=== PATIENT | female | born 2000 | race Caucasian/White ===

== ENCOUNTER 2024-02-06 00:10 | Inpatient (IN) | payer MEDICAID ==
[~2024-02-06] VITALS: Ht 175.3 cm; Wt 119.7 kg
--- NOTE | ~2024-02-06 | OR ---
[address] [address] [place] DATE OF OPERATION: 02/06/2024 SURGEON: Cait Desouza MD PREOPERATIVE DIAGNOSES: 1. Full-term intrauterine . 2. Previous C section x1. 3. Active labor. POSTOPERATIVE DIAGNOSES: 1. Full-term intrauterine . 2. Previous C section x1. 3. Active labor. PROCEDURE PERFORMED: Repeat low-transverse section via Pfannenstiel skin incision. ANESTHESIA: Spinal. ESTIMATED BLOOD LOSS: 400 mL. IV FLUIDS: Please see Anesthesia record. URINE OUTPUT: Please see Anesthesia record. SPECIMEN: None. COMPLICATIONS: None. FINDINGS: Viable female in vertex position. Apgars 7 and 9. Weight pending. Normal appearing uterus, ovaries and tubes. INDICATION AND CONSENT: PATIENT NAME: MONCHO LR OPERATIVE REPORT DATE OF : [birth year] REPORT #: [id number] PHYSICIAN: CAIT DESOUZA MD PCP: NO PRIMARY CARE PHYSICIAN REPORT IS CONFIDENTIAL AND NOT TO BE RELEASED WITHOUT AUTHORIZATION [address] [address] [place] The patient is a 23-year-old G3, P2-0-0-2 at 40 weeks and 4 days by EDC, who presented to Labor and Delivery complaining of contractions and labor. She was determined to be in active labor when she was dilated to 7 cm. She had a previous C section x1. Reviewed that this is and recommendations for repeat section secondary to limited resources. The patient agreed with this plan. All risks, benefits, alternatives and indications were reviewed with the patient in detail including the risk of bleeding, infection, damage to surrounding structures, and risks of requiring future restorative operation and a rare risk of injury or . Consent was signed and the patient agreed with plan. The patient was also consented for the possibility of blood transfusion with those inherent risks. PROCEDURE IN DETAIL: The patient was taken to the operating room with IV fluids running and pneumatic compression stockings applied to the lower extremities. The patient was prepped and draped in a normal sterile fashion. 2 g of Ancef was given for infection prophylaxis. Spinal anesthesia was obtained without difficulty. A Pfannenstiel skin incision was made was made with a scalpel and carried down to the fascia. The fascia was incised and extended laterally using Pearl scissors. The inferior aspect of the fascia was elevated with Galina clamps and the underlying rectus muscles pyramidalis was dissected out in similar fashion superior aspect and the fascia was also elevated with Galina clamps and the rectus muscles were dissected. Hemostasis was achieved with a Bovie. The rectus muscle was in the midline down to a level of the pubic symphysis. Preperitoneal fatty tissue was bluntly dissected to expose the peritoneum. Peritoneum was found to be free of adherent bowel and entered sharply. Peritoneal incision was extended superiorly and inferiorly with the bladder reflection with good visualization of the bladder. The Moises retractor was inserted and vesicouterine peritoneum was identified. Intra-abdominal survey revealed scant clear peritoneal fluid and a thinned out lower uterine segment. The vesicouterine peritoneum was examined. A bladder flap was developed. The bladder was kept out of the operative field using Moises retractor. The lower uterine segment was incised with a Scalpel and entered bluntly. The amniotic sac was ruptured and clear fluid was noted. The uterine incision was extended bluntly with lateral and upward traction. The fetus was in cephalic presentation. The head was elevated out of the pelvis with special attention paid to avoid uterine incision as a fulcrum. Gentle fundal pressure was applied once the head was brought into the intrauterine incision. The infant was delivered without difficulty. The mouth and nose were suctioned with a bulb. The cord was clamped and cut. The was handed out to the tinning machine set up operator. Minimal delayed cord clamping was performed since the . IV oxytocin was initiated to facilitate the uterine contracture. The placenta was delivered intact with manual PATIENT NAME: MONCHO LR OPERATIVE REPORT DATE OF : [birth year] REPORT #: [id number] PHYSICIAN: CAIT DESOUZA MD PCP: NO PRIMARY CARE PHYSICIAN REPORT IS CONFIDENTIAL AND NOT TO BE RELEASED WITHOUT AUTHORIZATION [facility] [address] [place], [place] [address] [place] massage to the uterine fundus. The uterus was then exteriorized, inside of the uterus was wiped clear with laparotomy sponges and uterine incision was closed with an 0 Monocryl suture in a running locked fashion. There was an extension around the right side that was closed and second 0 Monocryl stitch was utilized for imbrication of the incision. The ovaries and tubes were found to be normal. The uterus, tubes, and ovaries were then returned to the abdominal cavity. The blood clots and fluids were wiped out of the abdomen and pelvis with moist laparotomy sponges. The uterine incision was reinspected and good hemostasis was noted. The Moises retractor was then removed and the rectus muscles were approximated with 3-0 Vicryl stitch. The fascia was closed with a running 0 Vicryl stitch. The fatty layer was closed using 3-0 Vicryl stitch. The subcuticular layer was closed using 4-0 Monocryl suture in running fashion. The patient tolerated the procedure well with counts correct x2. Cait Desouza MD /MODL /[id number] Copies: ~ PATIENT NAME: MONCHO LR OPERATIVE REPORT DATE OF : [birth year] REPORT #: [id number] PHYSICIAN: CAIT DESOUZA MD PCP: NO PRIMARY CARE PHYSICIAN REPORT IS CONFIDENTIAL AND NOT TO BE RELEASED WITHOUT AUTHORIZATION
[2024-02-06] MEDS ORDERED: CEFAZOLIN SODIUM 2 GM/20 ML SYR IV SCH (01:09)
[2024-02-06] MEDS ORDERED: SOD+POT BICARB/CITRIC ACID 2 EA TABLET.EFF PO ONE (01:15)
[2024-02-06] MEDS ORDERED: LIDOCAINE 2% VISCOUS 6 ML SYR TOP ONE ×2 (01:15→03:00)
[2024-02-06] MEDS ORDERED: LACTATED RINGER'S 1,000 ML IV PRN (01:15)
[2024-02-06 01:16] LABS: HEMATOCRIT 34.4 % (35.0-50.0); HEMOGLOBIN 11.9 g/dL (12.0-18.0); MCH 31.8 (27-36); MCHC 34.4 g/dl (30-36); MCV 92.2 fl (81-99); RBC 3.73 M/ul (4.3-5.7); RDW 14.3 (10.5-15.0)
[2024-02-06 01:31] LABS: AMPHETAMINES, URINE NEGATIVE (NEGATIVE); BARBITURATES, URINE NEGATIVE (NEGATIVE); BENZODIAZEPINE, URINE NEGATIVE (NEGATIVE); BUPRENORPHINE, URINE NEGATIVE (NEGATIVE); CANNABINOID, URINE NEGATIVE (NEGATIVE); COCAINE, URINE NEGATIVE (NEGATIVE); ECSTASY, URINE NEGATIVE (NEGATIVE); FENTANYL, URINE NEGATIVE (NEGATIVE); METHADONE, URINE NEGATIVE (NEGATIVE); OPIATES, URINE NEGATIVE (NEGATIVE); OXYCODONE, URINE NEGATIVE (NEGATIVE); PHENCYCLIDINE, URINE NEGATIVE (NEGATIVE)
[2024-02-06] MEDS ORDERED: fentaNYL citrate 100 MCG/2 ML VIAL ONE (01:38)
[2024-02-06] MEDS ORDERED: MORPHINE SULFATE 1 MG/ML VIAL ONE (01:38)
[2024-02-06] MEDS ORDERED: ondansetron HCL 4 MG/2 ML VIAL ONE (01:41)
[2024-02-06] MEDS ORDERED: OXYTOCIN 10 UNITS/ML VIAL ONE (01:41)
[2024-02-06] MEDS ORDERED: DEXAMETHASONE SOD PHOS 4 MG/ML VIAL ONE ×2 (01:41→02:41)
[2024-02-06 01:53] LABS: ABO A; RH POSITIVE
[2024-02-06 01:54] LABS: ANTIBODY SCREEN NEGATIVE
[2024-02-06] MEDS ORDERED: Ropivacaine HCl 0.5% 30 ML VIAL ONE (02:41)
[2024-02-06] MEDS ORDERED: dexmedeTOMIDine HCl 200 MCG/2 ML VIAL ONE (02:41)
[2024-02-06] MEDS ORDERED: SODIUM CHLORIDE 0.9% 20 ML IV ONE (02:41)
[2024-02-06] MEDS ORDERED: fentaNYL citrate 50 MCG/ML SDV IV PRN (02:45)
[2024-02-06] MEDS ORDERED: HYDROmorphone HCL 1 MG/ML SYR IV PRN (02:45)
[2024-02-06] MEDS ORDERED: NALOXONE HCL 0.4 MG SYR IV PRN ×2 (02:45)
[2024-02-06] MEDS ORDERED: IBLOOD GLUCOSE TEST STRIP 1 EA TEST VI PRN (02:45)
[2024-02-06] MEDS ORDERED: diphenhydrAMINE HCL 50 MG/ML VIAL IV PRN ×2 (02:45)
[2024-02-06] MEDS ORDERED: KETOROLAC TROMETHAMINE 30 MG/ML VIAL IV PRN ×2 (02:45)
[2024-02-06] MEDS ORDERED: ondansetron HCL 4 MG/2 ML VIAL IV PRN ×3 (02:45→03:00)
[2024-02-06] MEDS ORDERED: LACTATED RINGER'S 1,000 ML IV SCH (02:57)
[2024-02-06] MEDS ORDERED: METOCLOPRAMIDE HCL 10 MG/2 ML SDV IV PRN (03:00)
[2024-02-06] MEDS ORDERED: OXYTOCIN/0.9 % SODIUM CHLORIDE 500 ML IV SCH (03:00)
[2024-02-06] MEDS ORDERED: OXYCODONE HCL 5 MG TAB PO PRN (03:00)
[2024-02-06] MEDS ORDERED: PROCHLORPERAZINE EDISYLATE 10 MG/2 ML VIAL IV PRN (03:00)
[2024-02-06] MEDS ORDERED: HYDROCODONE/ACETA 5/325 TAB PO PRN (03:00)
[2024-02-06] MEDS ORDERED: PROMETHAZINE HCL 25 MG TAB PO PRN (03:00)
[2024-02-06] MEDS ORDERED: bisacodyL 10 MG SUPP PR PRN (03:00)
[2024-02-06] MEDS ORDERED: OXYCODONE/APAP 5/325 TAB PO PRN (03:00)
[2024-02-06] MEDS ORDERED: PROMETHAZINE HCL 25 MG SUPP PR PRN (03:00)
[2024-02-06 04:04] VITALS: BP 128/60
[2024-02-06] MEDS ORDERED: KETOROLAC TROMETHAMINE 30 MG/ML VIAL IV SCH (04:30)
[2024-02-06] MEDS ORDERED: SIMETHICONE 125 MG TABLET CHEWABLE PO SCH (07:00)
[2024-02-06 07:50] VITALS: BP 111/58
--- NOTE | 2024-02-06 08:03 | NUR ---
02/06/24 0803 Beth Rider 0300-PT ARRIVES TO [facility] ROOM 105, PT A+O X4, DENIES PAIN OR NAUSEA. VSS ON RA, RR EVEN AND UNLABORED. PT HAS A 20G IV IN THE LT HAND, INFUSING IV FLUIDS PER ORDER. 0315-[facility] RN AT BEDSIDE ASSISTING PT W/ . 7-FINAL FUNDAL CHECK COMPLETED W/ [facility] RN, BEDSIDE REPORT GIVEN, ALL QUESTIONS ANSWERED. PT CONTINUES TO DENY PAIN OR NAUSEA, VSS ON RA.
[2024-02-06] MEDS ORDERED: SENNOSIDES/DOCUSATE 1 EA TAB PO SCH (09:00)
[2024-02-07] MEDS ORDERED: LACTATED RINGER'S 1,000 ML IV SCH (05:00)
[2024-02-07 05:59] LABS: HEMATOCRIT 29.1 % (35.0-50.0); MCH 32.5 (27-36); MCHC 34.2 g/dl (30-36); RBC 3.07 M/ul (4.3-5.7); RDW 14.5 (10.5-15.0)
[2024-02-07] MEDS ORDERED: IBUPROFEN 600 MG TAB PO SCH (06:00)
[2024-02-07] MEDS ORDERED: ACETAMINOPHEN 325 MG TAB PO PRN (08:15)
--- NOTE | 2024-02-08 15:09 | NUR ---
PT CALLED TRANSMITTER OPERATOR STATING THAT THE PHARMACY TOLD THEM THAT THE OB WHO DISCHARGED HER WAS UNABLE TO WRITE FOR PERCOCET PRESCRIPTION. CALLED DR BRIGHT AND HE CAME IN TO WRITE SCRIPT THAT PT NEEDED HE IS HEAD OF OB GROUP.
== END 2024-02-08 12:15 | disposition home or self-care (01) | DRG 788 ==
LOC: FBCO 00:10 → FBC 00:47 → MS 16:49 → FBC 17:00
PROVIDERS: ADMIT Student in an Organized Health Care Education/Training Program; ATTEND Student in an Organized Health Care Education/Training Program
PROC: 10D00Z1 Extraction of Products of Conception, Low, Open Approach (ICD-10-PCS; principal; 2024-02-06 01:37)
DX: O34.211 Maternal care for low transverse scar from previous cesarean delivery (principal); Z3A.40 40 weeks gestation of pregnancy; Z37.0 Single live birth; O48.0 Post-term pregnancy
CPT/HCPCS: 01961; 36415; 76942; 80307; 82803; 85027; 86850; 86900; 86901; A9270; J0690; J1100; J1885; J2274; J2405; J2590; J2795; J3010

== ENCOUNTER 2024-03-21 20:53 | Emergency (ER) | payer OTHER ==
[~2024-03-21] VITALS: Ht 182.9 cm; Wt 124.3 kg
[2024-03-21] MEDS ORDERED: CLEOCIN HCL300 MG PO (21:46)
[2024-03-21] MEDS ORDERED: HIBICLENS118 ML TOP (21:49)
[2024-03-21] MEDS ORDERED: clindamycin HCL 300 MG HOME.PACK PO ONE (22:00)
[2024-03-21 22:22] VITALS: BP 127/67
== END 2024-03-21 22:22 | disposition home or self-care (01) ==
LOC: ED 20:53
DX: L03.311 Cellulitis of abdominal wall (principal); Z87.891 Personal history of nicotine dependence
CPT/HCPCS: 87070; 87075; 87205; 99283